=== PATIENT | male | born 1995 | race Caucasian/White ===

== ENCOUNTER 2021-07-28 16:01 | Emergency (ER) | payer OTHER ==
[2021-07-28 17:21] VITALS: BP 148/63; PULSE 92; TEMP 98.8; BMI 36.6
[2021-07-28] MEDS ORDERED: IBUPROFEN 600 MG TABLET (FP) PO ONE ×2 (17:36→17:41)
== END 2021-07-28 18:05 | disposition home or self-care (01) ==
LOC: JERFT 16:01
DX: M62.838 Other muscle spasm (principal); M25.561 Pain in right knee
CPT/HCPCS: 73562-TC-RT-FY; 99283-25

== ENCOUNTER 2023-02-02 23:55 | Emergency (ER) | payer OTHER ==
[2023-02-03 00:08] VITALS: BP 155/88; PULSE 70; RESP 18; TEMP 98.5; BMI 35.6
[2023-02-03] MEDS ORDERED: FAMOTIDINE 20 MG/50 ML IVPB 20 MG/50 ML MG IVPB ONE ×2 (00:56→01:22)
[2023-02-03] MEDS ORDERED: MAG HYDROX/AL HYDROX/SIMETH 30 ML UNIT-DOSE CUP PO ONE (00:56)
[2023-02-03] MEDS ORDERED: ACETAMINOPHEN 1000 MG/100 ML BAG IVPB ONE (01:22)
[2023-02-03] MEDS ORDERED: DICYCLOMINE HCL 10 MG/5 ML PO ONE (01:22)
[2023-02-03] MEDS ORDERED: MAG HYDROX/AL HYDROX/SIMETH 30 ML UNIT-DOSE CUP ONE (01:22)
[2023-02-03] MEDS ORDERED: ACETAMINOPHEN INJECTION 100 ML IVPB ONE (01:28)
[2023-02-03 01:44] LABS: BASO % 0.5 % (0-2.0); EOS % 2.8 % (0-4.5); HEMATOCRIT 47.1 % (35.4-49); LYMPH % 34.5 % (8-40); MCH 27.3 pg (25.7-33.7); MEAN CELL VOLUME 80.5 fl (80-96); MEAN PLT VOLUME 9.1 fl (7.5-11.1); MONO % 8.2 % (3.8-10.2); PLATELET COUNT 181 10^3/uL (134-434); RBC 5.85 M/mm3 (4.00-5.60); RDW 13.3 % (11.9-15.9); WHITE BLOOD COUNT 9.7 K/mm3 (4.0-10.0)
[2023-02-03 01:59] LABS: POTASSIUM 4.7 mmol/L (3.5-5.1)
[2023-02-03 02:02] LABS: ALBUMIN 4.2 g/dl (3.4-5.0); BLOOD UREA NITROGEN 16.7 mg/dL (7-18)
[2023-02-03 02:05] LABS: CREATININE 1.1 mg/dL (0.55-1.3)
[2023-02-03 02:07] LABS: BILIRUBIN,TOTAL 0.5 mg/dL (0.2-1); TOT PROT 7.5 g/dl (6.4-8.2)
== END 2023-02-03 03:00 | disposition home or self-care (01) ==
LOC: JER 23:55
PROC: 3E033NZ Introduction of Analgesics, Hypnotics, Sedatives into Peripheral Vein, Percutaneous Approach (ICD-10-PCS; principal; 2023-02-02)
PROC: 3E033GC Introduction of Other Therapeutic Substance into Peripheral Vein, Percutaneous Approach (ICD-10-PCS; 2023-02-02)
DX: R10.13 Epigastric pain (principal); R14.2 Eructation; R05.9 Cough, unspecified; R11.10 Vomiting, unspecified
CPT/HCPCS: 36415; 71045-TC-FY; 80053; 82272; 84484; 85025; 93005; 93010; 99285-25